=== PATIENT | female | born 1995 | race Caucasian/White ===

== ENCOUNTER 2017-01-28 15:19 | Inpatient (IN) | payer MEDICAID ==
[2017-01-28 15:53] LABS: APPEARANCE,URINE TURBID; BILIRUBIN,URINE NEGATIVE (NEGATIVE); GLUCOSE, URINE NEGATIVE (NEGATIVE); KETONES,URINE NEGATIVE (NEGATIVE); LEUKOCYTE ESTERASE,URINE MODERATE (NEGATIVE); NITRITE,URINE NEGATIVE (NEGATIVE); PROTEIN,URINE 100 mg/dL (NEGATIVE); URINE SPECIFIC GRAVITY 1.009; UROBILINOGEN,URINE NEGATIVE mg/dL (<2.0)
[2017-01-28 15:58] LABS: AMNISURE (ROM) POSITIVE (NEGATIVE)
[2017-01-28 16:14] LABS: URINE BARBITURATES SCREEN NEGATIVE; URINE METHADONE SCREEN NEGATIVE; URINE OPIATES LOW NEGATIVE; URINE PHENCYCLIDINE SCREEN NEGATIVE
[2017-01-28 17:08] LABS: ABSOLUTE EOSINOPHILS # (AUTO) 0.1 10^3/uL (0.0-0.6); ABSOLUTE LYMPHOCYTES (AUTO) 2.7 10^3/uL (0.5-4.7); ABSOLUTE MONOCYTES (AUTO) 0.9 10^3/uL (0.1-1.4); ABSOLUTE NEUT (AUTO) 8.7 10^3/uL (1.7-8.2); BASOPHILS % (AUTO) 0.2 % (0-2); EOSINOPHILS % (AUTO) 0.5 % (0-6); HEMATOCRIT 32.8 % (36.0-47.0); HEMOGLOBIN 11.2 g/dL (12.0-15.5); HGB HCT DIFFERENCE 0.8; MEAN CORPUSCULAR HGB CONC 34.1 g/dL (32.0-36.0); MEAN CORPUSCULAR VOLUME 91 fl (80-97); MONOCYTES % (AUTO) 7.2 % (3-13); RED BLOOD COUNT 3.61 10^6/uL (3.72-5.28); RED CELL DISTRIBUTION WIDTH 13.5 % (11.5-14.0); SEGMENTED NEUTROPHILS % (AUTO) 70.1 % (42-78); WHITE BLOOD COUNT 12.5 10^3/uL (4.0-10.5)
[2017-01-28] MEDS ORDERED: PROMETHAZINE HCL INJ 25 MG/1 ML VIAL ONE (17:37)
[2017-01-28] MEDS ORDERED: NALBUPHINE HCL INJ 10 MG/1 ML AMPULE ONE (17:37)
[2017-01-28] MEDS ORDERED: MISOPROSTOL 0.2 MG TABLET ONE (18:21)
[2017-01-28] MEDS ORDERED: EPHEDRINE SULFATE INJ 50 MG/1 ML AMPULE ONE (18:22)
[2017-01-28] MEDS ORDERED: FENTANYL CITRATE INJ/PF 100 MCG/2 ML AMPUL ONE (18:22)
[2017-01-28] MEDS ORDERED: PHENYLEPHRINE HCL INJ/PF 10 MG/1 ML SDV ONE (18:22)
[2017-01-28] MEDS ORDERED: OXYTOCIN/NORMAL SALINE 20 UNIT/1,000 ML RTUINJ ONE (18:23)
[2017-01-28] MEDS ORDERED: BUPIVACAINE HCL 0.25 % INJ/PF (2.5 MG/1 ML) 30 ML VIAL ONE (18:23)
[2017-01-28] MEDS ORDERED: FENTANYL/BUPIVACAINE/NS/PF 0 MCG/0 ML RTUINJ EPI ONE (18:23)
[2017-01-28] MEDS ORDERED: LIDOCAINE 1% INJ-PF (10 MG/ML) 30 ML SDV ONE (18:23)
[2017-01-28] MEDS ORDERED: DIBUCAINE 1% OINTMENT 28 GM TP PRN (18:49)
[2017-01-28] MEDS ORDERED: OXYTOCIN/NORMAL SALINE 1,000 ML IV PRN (18:49)
[2017-01-28] MEDS ORDERED: ZOLPIDEM TARTRATE 5 MG TABLET PO PRN (18:49)
[2017-01-28] MEDS ORDERED: BENZOCAINE/MENTHOL AEROSOL SPRAY 56 ML TOP PRN (18:49)
[2017-01-28] MEDS ORDERED: ACETAMINOPHEN WITH CODEINE #3 TABLET PO PRN ×2 (18:49)
[2017-01-28] MEDS ORDERED: MEASLES,MUMPS&RUBELLA VACC/PF 0.5 ML VIAL SUBCUT PRN (18:49)
[2017-01-28] MEDS ORDERED: DIPH/PERTUSS(ACELL)/TETANUS VAC/PF 0.5 ML SYR (>=10YO) IM PRN (18:49)
--- NOTE | 2017-01-28 19:35 | Delivery Summary ---
Del Sum A-C Datetime Report Generated by CPN: 01/28/2017 19:35 DELIVERY PERSONNEL DELIVERY PERSONNEL: [id number] Delivery Doctor:: Nicki Lorenzana MD Labor and Delivery Nurse:: ROMA Zapata Labor and Delivery Nurse:: Trudi Ziegler RN Nursery Nurse:: Noa Talley RN Form Stripper/SALESPERSON BURIAL PLOTS: Jose R Bonner, FOUNDRY TENDER MATERNAL INFORMATION Delivery Anesthesia: None Medications After Delivery: Pitocin Drip 20 Units/1000ml NSS Estimated Blood Loss (ml): 205 Maternal Complications: None Provider Comments: Precipitous labor and delivery. Pt and tolerated the procedure well. LABOR SUMMARY EDC: 02/09/2017 00:00 No. Babies in Womb: 1 Attempted: No Labor Anesthesia: IV Sedation LABOR INFORMATION Reason for Induction: Not Applicable (Annotations: Data stored by [facility] on behalf of user) Onset of Labor: 01/28/2017 16:00 Complete Dilatation: 01/28/2017 18:20 Oxytocin: N/A Group B Beta Strep: neg Antibiotics # of Doses: 0 Antibiotics Time of Last Dose: 0 Name of Antibiotic Given: 0 Steroids Given: None Reason Steroids Not Administered: Not Applicable MEMBRANES Membranes Rupture Method: Spontaneous Rupture of Membranes: 01/28/2017 14:00 Length of Rupture (hr): 4.47 Amniotic Fluid Color: Clear Amniotic Fluid Amount: Scant Amniotic Fluid Odor: None STAGES OF LABOR Stage 1 hr: 2 Stage 1 min: 20 Stage 2 hr: 0 Stage 2 min: 8 Stage 3 hr: 0 Stage 3 min: 3 Total Time in Labor hr: 2 Total Time in Labor min: 31 VAGINAL DELIVERY Episiotomy: None Laceration #1: Vaginal Laceration Extension #1: First Degree Laceration Repair: Yes Laceration Repair Note: Vaginal tissue was infiltrated with 1% lidocaine plain. Vircryl 3.0 was used to reapproximate the first degree midline vaginal laceration that was non-hemostatic. Sponge Count Correct: N/A Sharps Count Correct: Yes CSECTION DELIVERY Primary Indication: N/A CSection Incision: N/A BABY A INFORMATION Delivery Date/Time: 01/28/2017 18:28 Method of Delivery: Vaginal Born in Route : No : N/A Forceps: N/A Vacuum Extraction: N/A Shoulder Dystocia : No PRESENTATION/POSITION BABY A Presentation: Cephalic Cephalic Presentation: Vertex Vertex Position: Left Occipital Anterior Breech Presentation: N/A PLACENTA INFORMATION BABY A Placenta Delivery Time : 01/28/2017 18:31 Placenta Method of Delivery: Spontaneous Placenta Status: Delivered SCORES BABY A Heart Rate 1 min: >100 bpm Resp Effort 1 min: Good Cry Reflex Irritability 1 min: Cough or Sneeze or Pulls Away Muscle Tone 1 min: Active Motion Color 1 min: Body [place], Extremities Blue Resuscitation Effort 1 min: Tactile Stimulation SCORE 1 MIN: 9 Heart Rate 5 min: >100 bpm Resp Effort 5 min: Good Cry Reflex Irritability 5 min: Cough or Sneeze or Pulls Away Muscle Tone 5 min: Active Motion Color 5 min: Body [place], Extremities Blue Resuscitation Effort 5 min: Tactile Stimulation SCORE 5 MIN: 9 INFORMATION BABY A Gestational Age at Delivery: 38.2 Gestational Status: Early Term- 37- 38.6 Weeks Infant Outcome : Liveborn Condition : Stable Infant Sex: Male IDENTIFICATION BABY A Verification Date/Time: 01/28/2017 18:48 ID Band Number: [id number] Mother's Name Verified: Yes RN Verifying Infant: D Bellmarkynce RNC Additional Verifying Personnel: R JonoPlastio RN WEIGHT/LENGTH BABY A Birthweight (gm): 3030 Infant Weight (lb): 6 Weight (oz): 11 Infant Length (in): 19.50 Length (cm): 49.53 CORD INFORMATION BABY A No. Cord Vessels: 3 Nuchal Cord : N/A Cord Blood Taken: Yes-For Storage (Mom's Blood type +) Infant Suction: None ASSESSMENT BABY A Complications: None Physical Findings at Delivery: Within Normal Limits Infant Respirations: Appears Normal Skin to Skin: Yes Mobile Sales Consultant/ALS Called : No Care By: Munira Talley [facility] Transferred To: Remains with Mother SIGNATURES Signature: with User ID: [email or web address]
--- NOTE | 2017-01-28 21:37 | Admission Physical ---
Datetime Report Generated by CPN: 01/28/2017 21:37 CURRENT ADMISSION Hx Assessment: The History has been Reviewed and is Current Chief Complaint: Uterine Contractions; Suspected Ruptured Membranes; Other Chief Complaint Other: Leakage of fluid with positive amniosure Indication for Induction: Term, Intrauterine ; Ruptured Membranes Admit Impression- Other: Transitioning into active labor in regards to contractions and pain Admit Plan: Admit to Unit; Initiate Labor Protocol ALLERGIES Medication Allergies: Yes Medication Allergies: tamiflu- swelling and hives Latex: No Latex Allergies Food Allergies: no Environmental Allergies: no OBSTETRICAL HISTORY EDC: 02/09/2017 00:00 : 3 Para: 1 Term: 1 : 0 SAB: 1 IAB: 0 Ectopic: 0 Livin Cesareans: 0 VBACs: 0 Multiple Births: 0 Gestational Diabetes: No Rh Sensitization: No Incompetent Cervix: No NIA: No Infertility: No ART Treatment: No Uterine Anomaly: No IUGR: No Hx Previous C/S: No Macrosomia: No Hx Loss/Stillborn: No PIH: No Hx : No Placenta Previa/Abruption: No Depression/PP Depression: No PTL/PROM: No Post Hemorrhage: No Current Procedures: None; Ultrasound SEE RECORDS Alcohol: No Marijuana : No Cocaine: No Other Illicit Drugs: No Illicit Drug Comments: Patient denies but records indicate past hx of meth ahd herion use Cigarettes: Current Some Day Smoker. [id number] MEDICAL HISTORY Diabetes: No Blood Transfusion: No Pulmonary Disease (Asthma, TB): No Breast Disease: No Hypertension: No Bell Cleaner Surgery: No Heart Disease: No Hosp/Surgery: Yes Autoimmune Disorder: No Anesthetic Complications: No Kidney Disease: Yes Abnormal Pap Smear: Yes Neuro/Epilepsy: No Psychiatric Disorders: Yes Other Medical Diseases: No Hepatitis/Liver Disease: No Significant Family History: No Varicosities/Phlebitis: No Trauma/Violence : No Thyroid Dysfunction: No Medical History Comments: utis/bipolar meds in the past/tonsils//colposcopy done in /IV drug use in the past INFECTIOUS HISTORY Gonorrhea: No Genital Herpes: No Chlamydia: Yes Tuberculosis: No Syphilis: No Hepatitis: No HIV/AIDS Exposure: No Rash or Viral Illness: No HPV: No PHYSICAL EXAM General: Normal Neurologic: Normal Heart: Normal Lungs: Normal Abdomen: Normal Genitourinary Exam: Normal Extremities: Normal Pelvic Type: Adequate Physical Exam Comments: Gross leakage of clear fluid Abd: gravid and NT Vital Signs: Reviewed; Within Normal Limits VAGINAL EXAM Dilatation: 3 Effacement: 90 Station: -1 Contraction Comments: 1-3 MEMBRANES Membranes: Ruptured Amniotic Fluid Color: Clear FETUS A EGA: 38.2 Monitoring: External US FHR- Baseline: 120s Variability: Moderate 6-25bpm Accelerations: 15X15 Decelerations: None FHR Category: Category I FHR Comments: Reasurring status Estimated Weight (gm): 3200-3400g Presentation: Vertex Admit Comment: 21yo @ 38w2d by presents with complaints leakage of fluid since around 1400. Pt reports good fm, no vb and regular ctxs. Pt denies any problems with this . Pt transfered to [facility] approximately 1 month ago. 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 FOB is not involved at current. Pt can have epidural when she desires. PLANS FOR LABOR AND DELIVERY Labor and Delivery: None Pain Management: Epidural Feeding Preference: Breast Benefit of Breast Feed Discussed: Yes Circumcision: Yes INFORMED CONSENT Signature: with User ID: [email or web address]
[2017-01-28] MEDS: IBUPROFEN 800 MG TABLET PO SCH (22:28)
[2017-01-28] MEDS ORDERED: INFLUENZA ADLT QUAD (36MOS+) 2017-18 VAC 0.5 ML SYR IM PRN (22:56)
[2017-01-29] MEDS: IBUPROFEN 800 MG TABLET PO SCH ×3 (05:46→21:26)
[2017-01-29 07:09] LABS: HEMATOCRIT 29.8 % (36.0-47.0); HEMOGLOBIN 10.3 g/dL (12.0-15.5); HGB HCT DIFFERENCE 1.1; MEAN CORPUSCULAR HEMOGLOBIN 31.4 pg (27.0-33.4); MEAN CORPUSCULAR HGB CONC 34.4 g/dL (32.0-36.0); MEAN CORPUSCULAR VOLUME 91 fl (80-97); RED BLOOD COUNT 3.27 10^6/uL (3.72-5.28); RED CELL DISTRIBUTION WIDTH 13.8 % (11.5-14.0); WHITE BLOOD COUNT 15.4 10^3/uL (4.0-10.5)
[2017-01-29] MEDS: PRENATAL VITAMIN W-O CA NO5/FE FUMARATE/FA CAPSULE PO SCH (09:57)
[2017-01-29] MEDS: SENNOSIDES/DOCUSATE 8.6-50 MG 1 EACH TABLET PO SCH (09:57)
[2017-01-29] MEDS: DOCUSATE SODIUM 100 MG CAPSULE PO SCH ×2 (09:57→18:17)
[2017-01-29] MEDS: FERROUS SULFATE 325 MG TABLET PO SCH ×2 (09:58→18:17)
--- NOTE | 2017-01-29 10:24 | PDOC PROGRESS REPORT ---
Subjective-OB Subjective: Post Delivery Day: 21 year old. Denies any needs at this time. reports tolerating diet, voiding, and passing gas. states she is without difficulty. Physical Exam (OB) Vital Signs: Temp Pulse Resp BP Pulse Ox 97.9 F 82 16 120/59 L 99 01/28/17 20:59 01/28/17 20:59 01/28/17 20:59 01/28/17 20:59 01/28/17 20:59 Intake & Output 01/28/17 01/29/17 01/30/17 07:59 06:59 06:59 Weight - Abdomen Description: Tender, Soft Hernia Present: No Fundal Description: Firm, Midline Fundal Height: u/u - u/2 - Extremities Lower extremities: Crys's sign - neg Objective-Diagnostic Laboratory: 01/29/17 06:43 01/28/17 01/28/17 01/28/17 15:30 16:45 16:45 WBC 12.5 H RBC 3.61 L Hgb 11.2 L Hct 32.8 L MCV 91 MCH 31.0 MCHC 34.1 RDW 13.5 Plt Count 207 Seg Neutrophils % 70.1 Lymphocytes % 22.0 Monocytes % 7.2 Eosinophils % 0.5 Basophils % 0.2 Absolute Neutrophils 8.7 H Absolute Lymphocytes 2.7 Absolute Monocytes 0.9 Absolute Eosinophils 0.1 Absolute Basophils 0.0 Urine Color YELLOW Urine Appearance TURBID Urine pH 7.0 Ur Specific [place] 1.009 Urine Protein 100 H Urine Glucose (UA) NEGATIVE Urine Ketones NEGATIVE Urine Blood MODERATE H Urine Nitrite NEGATIVE Ur Leukocyte Esterase MODERATE H Blood Type A POSITIVE Antibody Screen NEGATIVE 01/29/17 06:43 WBC 15.4 H RBC 3.27 L Hgb 10.3 L Hct 29.8 L MCV 91 MCH 31.4 MCHC 34.4 RDW 13.8 Plt Count 184 Seg Neutrophils % Lymphocytes % Monocytes % Eosinophils % Basophils % Absolute Neutrophils Absolute Lymphocytes Absolute Monocytes Absolute Eosinophils Absolute Basophils Urine Color Urine Appearance Urine pH Ur Specific [place] Urine Protein Urine Glucose (UA) Urine Ketones Urine Blood Urine Nitrite Ur Leukocyte Esterase Blood Type Antibody Screen
[2017-01-30] MEDS: IBUPROFEN 800 MG TABLET PO SCH (05:52)
--- NOTE | 2017-01-30 08:50 | PDOC DISCHARGE SUMMARY ---
Final Diagnosis Discharge Date: 01/30/17 - Final Diagnosis (1) History of drug abuse in remission Is this a current diagnosis for this admission?: Yes (2) Normal vaginal delivery Is this a current diagnosis for this admission?: Yes Discharge Data - Discharge Medication Home Medications: Pnv No.95/Ferrous Fum/Folic AC [ Multivitamin Tablet] 1 each PO DAILY Docusate Sodium [Colace 100 mg Capsule] 100 mg PO BID #60 capsule 01/30/17 Ibuprofen [Motrin 800 mg Tablet] 800 mg PO Q8 #60 tablet 01/30/17 Gestational Age: 38.2 Reason(s) for Admission: Onset of Labor Procedures: NST Intrapartum Procedure(s): Spontaneous Vaginal Delivery Complication(s): Laceration-Perineal Laceration-Degree: 1st - [place] Data Baby 1 Male at 1 minute: 9 at 5 minutes: 9 Weight: 3030 kg Home with Mother: Yes Complications: No - Diagnosis Test Laboratory: Temp Pulse Resp BP Pulse Ox 97.6 F 71 16 100/43 L 98 01/30/17 08:33 01/30/17 08:33 01/30/17 08:33 01/30/17 08:12 01/30/17 08:33 01/28/17 01/28/17 01/29/17 15:30 16:45 06:43 RBC 3.61 L 3.27 L Hgb 11.2 L 10.3 L Hct 32.8 L 29.8 L Urine Opiates Screen NEGATIVE - Discharge information/Instructions Discharge Activity: Balance Activity w/Rest, Pelvic Rest Discharge Diet: Regular Disposition: HOME, SELF-CARE Follow up with: [facility] in: 4, Weeks
[2017-01-30] MEDS: DOCUSATE SODIUM 100 MG CAPSULE PO SCH (10:41)
[2017-01-30] MEDS: PRENATAL VITAMIN W-O CA NO5/FE FUMARATE/FA CAPSULE PO SCH (10:41)
[2017-01-30] MEDS: FERROUS SULFATE 325 MG TABLET PO SCH (10:41)
[2017-01-30] MEDS: SENNOSIDES/DOCUSATE 8.6-50 MG 1 EACH TABLET PO SCH (10:42)
[2017-01-30 13:12] VITALS: BP 108/61
== END 2017-01-30 13:49 | disposition home or self-care (01) | DRG 775 ==
LOC: LC 15:19 → LR 16:07 → 2S 20:50
PROVIDERS: ADMIT Obstetrics & Gynecology; ATTEND Obstetrics & Gynecology
PROC: 10E0XZZ Delivery of Products of Conception, External Approach (ICD-10-PCS; principal; 2017-01-28)
PROC: 0HQ9XZZ Repair Perineum Skin, External Approach (ICD-10-PCS; 2017-01-28)
PROC: 4A1HXCZ Monitoring of Products of Conception, Cardiac Rate, External Approach (ICD-10-PCS; 2017-01-28)
PROC: 3E0234Z Introduction of Serum, Toxoid and Vaccine into Muscle, Percutaneous Approach (ICD-10-PCS; 2017-01-30)
PROC: 3E0234Z Introduction of Serum, Toxoid and Vaccine into Muscle, Percutaneous Approach (ICD-10-PCS; 2017-01-30)
DX: O62.3 Precipitate labor (principal); O99.334 Smoking (tobacco) complicating childbirth; O70.0 First degree perineal laceration during delivery; F17.210 Nicotine dependence, cigarettes, uncomplicated; Z37.0 Single live birth; Z3A.38 38 weeks gestation of pregnancy; Z23 Encounter for immunization
CPT/HCPCS: 36415; 80307; 81005; 84112; 85025; 85027; 86592; 86850; 86900; 86901; 90686; 90715; J2300; J2370; J2550; J2590; J3010; J3490

== ENCOUNTER 2018-02-09 20:42 | Outpatient (CLI) | payer MEDICAID ==
[2018-02-09 21:06] LABS: AMORPHOUS SEDIMENT,URINE TRACE /HPF; APPEARANCE,URINE SLIGHTLY-CLOUDY; BILIRUBIN,URINE NEGATIVE (NEGATIVE); COLOR,URINE YELLOW; GLUCOSE, URINE NEGATIVE (NEGATIVE); KETONES,URINE NEGATIVE (NEGATIVE); LEUKOCYTE ESTERASE,URINE NEGATIVE (NEGATIVE); NITRITE,URINE NEGATIVE (NEGATIVE); PROTEIN,URINE NEGATIVE (NEGATIVE); URINE SPECIFIC GRAVITY 1.016; UROBILINOGEN,URINE NEGATIVE mg/dL (<2.0)
[2018-02-09 21:24] LABS: URINE AMPHETAMINES SCREEN NEGATIVE; URINE BARBITURATES SCREEN NEGATIVE; URINE BENZODIAZEPINES SCREEN NEGATIVE; URINE COCAINE SCREEN NEGATIVE; URINE MARIJUANA (THC) SCREEN NEGATIVE; URINE METHADONE SCREEN NEGATIVE; URINE PHENCYCLIDINE SCREEN NEGATIVE
== END 2018-02-09 21:56 | disposition home or self-care (01) ==
LOC: LC 20:42
PROVIDERS: ATTEND Obstetrics & Gynecology Gynecology
DX: O47.02 False labor before 37 completed weeks of gestation, second trimester (principal); Z3A.24 24 weeks gestation of pregnancy
CPT/HCPCS: 36415; 80307; 80361; 81001

== ENCOUNTER 2018-03-25 20:10 | Outpatient (CLI) | payer MEDICAID ==
[2018-03-25 20:47] LABS: APPEARANCE,URINE CLOUDY; BILIRUBIN,URINE NEGATIVE (NEGATIVE); GLUCOSE, URINE NEGATIVE (NEGATIVE); KETONES,URINE NEGATIVE (NEGATIVE); LEUKOCYTE ESTERASE,URINE NEGATIVE (NEGATIVE); NITRITE,URINE NEGATIVE (NEGATIVE); PROTEIN,URINE NEGATIVE (NEGATIVE); URINE SPECIFIC GRAVITY 1.012; UROBILINOGEN,URINE NEGATIVE mg/dL (<2.0)
[2018-03-25 20:48] LABS: COLOR,URINE DARK YELLOW
[2018-03-25 20:58] LABS: URINE AMPHETAMINES SCREEN NEGATIVE; URINE BARBITURATES SCREEN NEGATIVE; URINE BENZODIAZEPINES SCREEN NEGATIVE; URINE COCAINE SCREEN NEGATIVE; URINE MARIJUANA (THC) SCREEN NEGATIVE; URINE METHADONE SCREEN NEGATIVE; URINE PHENCYCLIDINE SCREEN NEGATIVE
--- NOTE | 2018-03-25 22:06 | RADIOLOGY REPORT (SQ) ---
EXAM DESCRIPTION: US LIMITED COMPLETED DATE/TME: 03/25/2018 00:00 CLINICAL HISTORY: 23 years, Female, cervical length COMPARISON: None. TECHNIQUE: Limited second/third trimester OB ultrasound LIMITATIONS: None. FINDINGS: Cervical length is 4.41 cm. Single, live intrauterine gestation in the vertex presentation. Detailed anatomic assessment was not performed. Detailed assessment of the placenta and amniotic fluid volume is not performed. Current gestational age is 30 weeks 5 days. IMPRESSION: Single, live intrauterine gestation in the vertex presentation. Cervical length is 4.41 cm. copyright 2010 [employer]- All Rights Reserved
== END 2018-03-25 22:25 | disposition home or self-care (01) ==
LOC: LC 20:10
PROVIDERS: ATTEND Obstetrics & Gynecology
PROC: 4A1HXCZ Monitoring of Products of Conception, Cardiac Rate, External Approach (ICD-10-PCS; principal; 2018-03-25)
DX: O26.893 Other specified pregnancy related conditions, third trimester (principal); R10.9 Unspecified abdominal pain; Z3A.30 30 weeks gestation of pregnancy
CPT/HCPCS: 76815; 80307; 81001

== ENCOUNTER 2018-05-23 11:13 | Inpatient (IN) | payer MEDICAID ==
[2018-05-23] MEDS ORDERED: LIDOCAINE 1% INJ-PF (10 MG/ML) 30 ML SDV ONE (11:39)
[2018-05-23] MEDS ORDERED: MISOPROSTOL 0.2 MG TABLET ONE (11:39)
[2018-05-23] MEDS ORDERED: OXYTOCIN/NORMAL SALINE 20 UNIT/1,000 ML RTUINJ ONE (11:39)
[2018-05-23] MEDS ORDERED: PENICILLIN G-K 5 MILLION UNIT VIAL ONE ×2 (11:39→14:56)
[2018-05-23] MEDS ORDERED: RINGERS SOLUTION,LACTATED 1,000 ML IV ONE (11:39)
[2018-05-23] MEDS ORDERED: PENICILLIN G POTASSIUM 5,000,000 UNIT in DEXTROSE 5%-WATER 100 ML IV ONE (11:39)
[2018-05-23 12:22] LABS: ABSOLUTE EOSINOPHILS # (AUTO) 0.1 10^3/uL (0.0-0.6); ABSOLUTE LYMPHOCYTES (AUTO) 2.9 10^3/uL (0.5-4.7); ABSOLUTE MONOCYTES (AUTO) 0.7 10^3/uL (0.1-1.4); ABSOLUTE NEUT (AUTO) 9.1 10^3/uL (1.7-8.2); BASOPHILS % (AUTO) 0.1 % (0-2); EOSINOPHILS % (AUTO) 0.6 % (0-6); HEMATOCRIT 30.6 % (36.0-47.0); HEMOGLOBIN 10.6 g/dL (12.0-15.5); LYMPHOCYTES % (AUTO) 22.8 % (13-45); MEAN CORPUSCULAR HEMOGLOBIN 31.6 pg (27.0-33.4); MEAN CORPUSCULAR HGB CONC 34.5 g/dL (32.0-36.0); MEAN CORPUSCULAR VOLUME 92 fl (80-97); MONOCYTES % (AUTO) 5.6 % (3-13); PLATELET COUNT 251 10^3/uL (150-450); RED BLOOD COUNT 3.34 10^6/uL (3.72-5.28); RED CELL DISTRIBUTION WIDTH 13.8 % (11.5-14.0); SEGMENTED NEUTROPHILS % (AUTO) 70.9 % (42-78); TOTAL CELLS COUNTED % (AUTO) 100 %; WHITE BLOOD COUNT 12.9 10^3/uL (4.0-10.5)
[2018-05-23] MEDS ORDERED: BUPIVACAINE HCL 0.25 % INJ/PF (2.5 MG/1 ML) 30 ML VIAL ONE (13:01)
[2018-05-23] MEDS ORDERED: EPHEDRINE SULFATE INJ 50 MG/1 ML AMPULE ONE (13:01)
[2018-05-23] MEDS ORDERED: FENTANYL/BUPIVACAINE/NS/PF 300 MCG/150 ML RTUINJ EPI ONE (13:01)
[2018-05-23] MEDS ORDERED: LIDOCAINE 1.5%/EPINEPHRINE INJ-PF 30 ML SDV ONE (13:01)
--- NOTE | 2018-05-23 13:28 | Admission Physical ---
Datetime Report Generated by CPN: 05/23/2018 13:28 CURRENT ADMISSION Hx Assessment: The History has been Reviewed and is Current Chief Complaint: Uterine Contractions Indication for Induction: Not Applicable Admit Impression : Term, Intrauterine Admit Plan: Admit to Unit; Initiate Labor Protocol ALLERGIES Medication Allergies: Yes Medication Allergies: oseltamivir/MO/Hives (03/25/2018) Latex: No Latex Allergies OBSTETRICAL HISTORY EDC: 05/29/2018 00:00 : 4 Para: 2 Term: 2 : 0 IAB: 1 Ectopic: 0 Livin Cesareans: 0 VBACs: 0 Multiple Births: 0 Gestational Diabetes: No Rh Sensitization: No Incompetent Cervix: No NIA: No Infertility: No ART Treatment: No Uterine Anomaly: No IUGR: No Hx Previous C/S: No Macrosomia: No Hx Loss/Stillborn: No PIH: No Hx : No Placenta Previa/Abruption: No Depression/PP Depression: No PTL/PROM: No Post Hemorrhage: No Current Procedures: Ultrasound Obstetrical History Comments: G1 2011 G2 SAB G3 2016 G4 curernt SEE RECORDS Alcohol: No Marijuana : No Cocaine: No Other Illicit Drugs: Yes Illicit Drug Comments: pt positive for opioids on UDS on 02/09/18 Cigarettes: Current Everyday Smoker. [id number] Cigarette Frequency: < 5 per day Advised to Stop: Yes MEDICAL HISTORY Diabetes: No Blood Transfusion: No Pulmonary Disease (Asthma, TB): No Breast Disease: No Hypertension: No Account Resolution Analyst Surgery: No Heart Disease: No Hosp/Surgery: No Autoimmune Disorder: No Anesthetic Complications: No Kidney Disease: Yes Abnormal Pap Smear: Yes Neuro/Epilepsy: No Psychiatric Disorders: No Other Medical Diseases: No Hepatitis/Liver Disease: No Significant Family History: No Varicosities/Phlebitis: No Trauma/Violence : No Thyroid Dysfunction: No Medical History Comments: abnormal pap smear during last , follow up was negative. INFECTIOUS HISTORY Gonorrhea: No Genital Herpes: No Chlamydia: Yes Tuberculosis: No Syphilis: No Hepatitis: No HIV/AIDS Exposure: No Rash or Viral Illness: No HPV: No Infectious History Comments: chlamydia 2012 MADHURI negative PHYSICAL EXAM General: Normal Neurologic: Normal Heart: Normal Lungs: Normal Breast: Normal Back: Normal Abdomen: Normal Genitourinary Exam: Normal Extremities: Normal Pelvic Type: Adequate Physical Exam Comments: pelvis proven to 7lbs 10oz Vital Signs: Reviewed; Within Normal Limits FETUS A EGA: 39.1 Monitoring: External US FHR- Baseline: 140 Variability: Moderate 6-25bpm Accelerations: 15X15 Decelerations: Variable Presentation: Vertex Admit Comment: 23yo @39w1d A positive, RI,GBS positive admitted into L_D with contractions and found to be 5cm dilated. Medical hx significant for borderline personality disorder,smoking and an elevated 1hr GTT this with normal 3hr. Reports positive movement today, no concerns. Will obtain epidural for pain control, anticipate delivery. PLANS FOR LABOR AND DELIVERY Pain Management: Epidural Feeding Preference: Breast Benefit of Breast Feed Discussed: Yes Circumcision: Yes INFORMED CONSENT Assignment: Kat White MD Signature: with User ID: [email or web address] : with User ID: [email or web address]
[2018-05-23 13:36] LABS: URINE AMPHETAMINES SCREEN NEGATIVE; URINE BARBITURATES SCREEN NEGATIVE; URINE BENZODIAZEPINES SCREEN NEGATIVE; URINE COCAINE SCREEN NEGATIVE; URINE MARIJUANA (THC) SCREEN NEGATIVE; URINE METHADONE SCREEN NEGATIVE; URINE PHENCYCLIDINE SCREEN NEGATIVE
[2018-05-23] MEDS ORDERED: DIPH/PERTUSS(ACELL)/TETANUS VAC/PF 0.5 ML SYR (>=10YO) IM PRN (15:40)
[2018-05-23] MEDS ORDERED: PROMETHAZINE HCL 25 MG SUPP.RECT PR PRN (15:40)
[2018-05-23] MEDS ORDERED: OXYTOCIN/NORMAL SALINE 20 UNIT/1,000 ML RTUINJ IV PRN (15:40)
[2018-05-23] MEDS ORDERED: PROMETHAZINE HCL 25 MG TABLET PO PRN (15:40)
[2018-05-23] MEDS ORDERED: PSEUDOEPHEDRINE HCL 30 MG TABLET PO PRN (15:40)
[2018-05-23] MEDS ORDERED: GLYCERIN/WITCH HAZEL LEAF 1 EACH MED..PAD TP PRN (15:40)
[2018-05-23] MEDS ORDERED: DIBUCAINE 1% OINTMENT 28 GM TP PRN (15:40)
[2018-05-23] MEDS ORDERED: MEASLES,MUMPS&RUBELLA VACC/PF 0.5 ML VIAL SUBCUT PRN (15:40)
[2018-05-23] MEDS ORDERED: MAGNESIUM HYDROXIDE SUSP 30 ML UDCUP PO PRN (15:40)
[2018-05-23] MEDS ORDERED: DIPHENHYDRAMINE HCL 25 MG CAPSULE PO PRN (15:40)
[2018-05-23] MEDS ORDERED: NA PHOS,M-B/NA PHOS,DI-BA (ADULT) 133 ML ENEMA PR PRN (15:40)
[2018-05-23] MEDS ORDERED: ACETAMINOPHEN 325 MG TABLET PO PRN (15:40)
[2018-05-23] MEDS ORDERED: BENZOCAINE/MENTHOL AEROSOL SPRAY 56 ML TOP PRN (15:40)
[2018-05-23] MEDS ORDERED: ACETAMINOPHEN WITH CODEINE #3 TABLET PO PRN (15:40)
[2018-05-23] MEDS ORDERED: PROMETHAZINE HCL INJ 25 MG/1 ML VIAL IV PRN (15:40)
--- NOTE | 2018-05-23 17:32 | Delivery Summary ---
Del Sum A-C Datetime Report Generated by CPN: 05/23/2018 17:32 DELIVERY PERSONNEL DELIVERY PERSONNEL: [id number] Delivery Doctor:: Kaitlin Heck CNM Labor and Delivery Nurse:: Jose De Jesus Stone RNtelephone assembler Nurse:: Connie Shoemaker RN Nursery Nurse:: Heather Becker RN Manager Warehouse/SKI TOP TRIMMER: [facility] [place] Manager Warehouse/SKI TOP TRIMMER: Jose R Bonner, SHIFT FOREMAN MATERNAL INFORMATION Delivery Anesthesia: Epidural Medications After Delivery: Pitocin Bolus-Please Comment; Pitocin Drip 20 Units/1000ml NSS Meds After Delivery Comment: Pitocin 20 units in 1 L NS bolusing per order Maternal Complications: None Provider Comments: Pt with increased pain with contractions and found to be c/c/0 with bbbw, pushed x1 and SROM with clear fluid. Pt. continued to push with next contraction and went on to deliver a viable baby boy in MELISSA presentation. Baby delivered through loose nuchal x1 and with vigorous respiratory effort and cry spontaneously at . Baby placed on maternal abdomen, cord allowed to stop pulsating then clamped x2 and cut by FOB (3vc noted, cord blood collected) placenta delivered spontaneously intact immediately following cord blood collection. Vaginal and perineal inspection revealed no lacerations, fundus firm @ u with minimal bleeding. Mother and baby remain skin to skin and bonding at this time. LABOR SUMMARY EDC: 05/29/2018 00:00 No. Babies in Womb: 1 Attempted: No Labor Anesthesia: Epidural LABOR INFORMATION Reason for Induction: Not Applicable Onset of Labor: 05/23/2018 09:00 Complete Dilatation: 05/23/2018 15:16 Oxytocin: N/A Group B Beta Strep: POSITIVE Antibiotics # of Doses: 2 Antibiotics Time of Last Dose: 1505 Name of Antibiotic Given: PCN Steroids Given: None Reason Steroids Not Administered: Not Applicable MEMBRANES Membranes Rupture Method: Spontaneous Rupture of Membranes: 05/23/2018 15:21 Length of Rupture (hr): 0.02 Amniotic Fluid Color: Clear Amniotic Fluid Amount: Small Amniotic Fluid Odor: Normal STAGES OF LABOR Stage 1 hr: 6 Stage 1 min: 16 Stage 2 hr: 0 Stage 2 min: 6 Stage 3 hr: 0 Stage 3 min: 5 Total Time in Labor hr: 6 Total Time in Labor min: 27 VAGINAL DELIVERY Episiotomy: None Laceration #1: None Laceration Extension #1: N/A Laceration Repair: Not Applicable Laceration Repair Note: N/A Sponge Count Correct: N/A Sharps Count Correct: N/A CSECTION DELIVERY Primary Indication: N/A Secondary Indication: N/A CSection Incidence: N/A Labor: N/A Elective: N/A CSection Incision: N/A BABY A INFORMATION Infant Delivery Date/Time: 05/23/2018 15:22 Method of Delivery: Vaginal Born in Route : No : N/A Forceps: N/A Vacuum Extraction: N/A Shoulder Dystocia : No PRESENTATION/POSITION BABY A Presentation: Cephalic Cephalic Presentation: Vertex Breech Presentation: N/A PLACENTA INFORMATION BABY A Placenta Delivery Time : 05/23/2018 15:27 Placenta Method of Delivery: Spontaneous Placenta Status: Delivered SCORES BABY A Heart Rate 1 min: >100 bpm Resp Effort 1 min: Good Cry Reflex Irritability 1 min: Cough or Sneeze or Pulls Away Muscle Tone 1 min: Some Flexion of Extremities Color 1 min: Body [place], Extremities Blue Resuscitation Effort 1 min: N/A SCORE 1 MIN: 8 Heart Rate 5 min: >100 bpm Resp Effort 5 min: Good Cry Reflex Irritability 5 min: Cough or Sneeze or Pulls Away Muscle Tone 5 min: Active Motion Color 5 min: Body [place], Extremities Blue Resuscitation Effort 5 min: N/A SCORE 5 MIN: 9 INFANT INFORMATION BABY A Gestational Age at Delivery: 39.1 Gestational Status: Full Term- 39- 40.6 Weeks Infant Outcome : Liveborn Infant Condition : Stable Sex: Male IDENTIFICATION BABY A Infant Verification Date/Time: 05/23/2018 15:36 ID Band Number: [id number] Mother's Name Verified: Yes Infant RN Verifying : M ABDOULAYE, RN/ BL ROULUND, RN WEIGHT/LENGTH BABY A Birthweight (gm): 2978 Infant Weight (lb): 6 Weight (oz): 9 Infant Length (in): 18.50 Length (cm): 46.99 CORD INFORMATION BABY A No. Cord Vessels: 3 Nuchal Cord : Around Neck x1, Loose Cord Blood Taken: Yes-For Storage (Mom's Blood type +) Infant Suction: None ASSESSMENT BABY A Complications: None Physical Findings at Delivery: Within Normal Limits Respirations: Appears Normal Skin to Skin: Yes Butting Saw Operator/ALS Called : No Infant Care By: Emery Becker RN Transferred To: Remains with Mother SIGNATURES Assignment: Kat White MD Signature: with User ID: Kelli : with User ID: [email or web address]
[2018-05-23] MEDS: DOCUSATE SODIUM 100 MG CAPSULE PO SCH ×2 (18:34→18:52)
[2018-05-23] MEDS: FERROUS SULFATE 325 MG TABLET PO SCH ×2 (18:34→18:52)
[2018-05-23] MEDS: IBUPROFEN 800 MG TABLET PO SCH ×2 (18:35→18:52)
[2018-05-23] MEDS: PENICILLIN G POTASSIUM 2,500,000 UNIT in DEXTROSE 5%-WATER 50 ML IV SCH (20:58)
[2018-05-23] MEDS: FAMOTIDINE 20 MG TABLET PO SCH (21:42)
[2018-05-24] MEDS: IBUPROFEN 800 MG TABLET PO SCH ×3 (02:47→17:47)
[2018-05-24 06:47] LABS: HEMATOCRIT 32.2 % (36.0-47.0); HEMOGLOBIN 10.8 g/dL (12.0-15.5); MEAN CORPUSCULAR HEMOGLOBIN 31.2 pg (27.0-33.4); MEAN CORPUSCULAR HGB CONC 33.6 g/dL (32.0-36.0); MEAN CORPUSCULAR VOLUME 93 fl (80-97); PLATELET COUNT 270 10^3/uL (150-450); RED BLOOD COUNT 3.46 10^6/uL (3.72-5.28); WHITE BLOOD COUNT 15.1 10^3/uL (4.0-10.5)
[2018-05-24] MEDS: FAMOTIDINE 20 MG TABLET PO SCH ×2 (10:27→21:45)
[2018-05-24] MEDS: PRENATAL VITAMIN W DHA CAPSULE PO SCH (10:27)
[2018-05-24] MEDS: DOCUSATE SODIUM 100 MG CAPSULE PO SCH ×2 (10:27→17:47)
[2018-05-24] MEDS: SENNOSIDES/DOCUSATE 8.6-50 MG 1 EACH TABLET PO SCH (10:27)
[2018-05-24] MEDS: FERROUS SULFATE 325 MG TABLET PO SCH ×2 (10:27→17:47)
--- NOTE | 2018-05-24 11:35 | PDOC PROGRESS REPORT ---
Subjective-OB Progress Note for:: 05/24/18 Physical Exam (OB) Vital Signs: Temp Pulse Resp BP Pulse Ox 97.7 F 74 17 120/50 L 99 05/24/18 07:34 05/24/18 07:34 05/24/18 07:34 05/24/18 07:34 05/24/18 07:34 Intake & Output 05/23/18 05/24/18 05/25/18 06:59 06:59 06:59 Weight 84.6 kg - Lochia Lochia Amount: Scant < 10 ml Lochia Color: Rubra/Red - Abdomen Description: Soft, Round Hernia Present: No Bowel Sounds: Normoactive Flatus Presence: Present Stool: No Fundal Description: Firm, Midline Fundal Height: u/u - u/2 Objective-Diagnostic Laboratory: 05/24/18 06:33 05/23/18 05/23/18 05/24/18 12:01 12:01 06:33 WBC 12.9 H 15.1 H RBC 3.34 L 3.46 L Hgb 10.6 L 10.8 L Hct 30.6 L 32.2 L MCV 92 93 MCH 31.6 31.2 MCHC 34.5 33.6 RDW 13.8 14.0 Plt Count 251 270 Seg Neutrophils % 70.9 Lymphocytes % 22.8 Monocytes % 5.6 Eosinophils % 0.6 Basophils % 0.1 Absolute Neutrophils 9.1 H Absolute Lymphocytes 2.9 Absolute Monocytes 0.7 Absolute Eosinophils 0.1 Absolute Basophils 0.0 Blood Type A POSITIVE Antibody Screen NEGATIVE
[2018-05-25] MEDS: IBUPROFEN 800 MG TABLET PO SCH ×2 (01:29→10:38)
[2018-05-25 07:49] VITALS: BP 120/62
--- NOTE | 2018-05-25 09:28 | PDOC DISCHARGE SUMMARY ---
Final Diagnosis Discharge Date: 05/25/18 - PP Day #2, doing well, no complaints, Breast and Bottlefeeding, A+, rubella Immune, +UDS for Opiod this admission - Final Diagnosis (1) Normal course Is this a current diagnosis for this admission?: Yes (2) Delivery normal Is this a current diagnosis for this admission?: Yes (3) Is this a current diagnosis for this admission?: Yes (4) History of drug abuse in remission Is this a current diagnosis for this admission?: Yes Discharge Data - Discharge Medication Prescriptions: Ibuprofen [Motrin 800 mg Tablet] 800 mg PO Q8A #60 tablet Home Medications: Pnv No.95/Ferrous Fum/Folic AC [ Multivitamin Tablet] 1 each PO DAILY 01/28/17 Ibuprofen [Motrin 800 mg Tablet] 800 mg PO Q8A #60 tablet 05/25/18 Reason(s) for Admission: Onset of Labor Procedures: Ultrasound Intrapartum Procedure(s): Spontaneous Vaginal Delivery - Diagnosis Test Laboratory: Temp Pulse Resp BP Pulse Ox 97.6 F 61 16 120/62 100 05/25/18 07:37 05/25/18 07:37 05/25/18 07:37 05/25/18 07:37 05/25/18 07:37 05/23/18 05/23/18 05/24/18 11:20 12:01 06:33 RBC 3.34 L 3.46 L Hgb 10.6 L 10.8 L Hct 30.6 L 32.2 L Urine Opiates Screen NEGATIVE - Discharge information/Instructions Discharge Activity: Activity As Tolerated, No Lifting Over 10 Pounds, Pelvic Rest Discharge Diet: As Tolerated, Regular Disposition: HOME, SELF-CARE Follow up with: [facility] in: 4, Weeks
[2018-05-25] MEDS: PRENATAL VITAMIN W DHA CAPSULE PO SCH (10:38)
[2018-05-25] MEDS: SENNOSIDES/DOCUSATE 8.6-50 MG 1 EACH TABLET PO SCH (10:38)
[2018-05-25] MEDS: DOCUSATE SODIUM 100 MG CAPSULE PO SCH (10:38)
[2018-05-25] MEDS: FAMOTIDINE 20 MG TABLET PO SCH (10:38)
[2018-05-25] MEDS: FERROUS SULFATE 325 MG TABLET PO SCH (10:38)
== END 2018-05-25 14:48 | disposition home or self-care (01) | DRG 807 ==
LOC: LC 11:13 → LR 11:46 → 2S 17:55
PROVIDERS: ADMIT Obstetrics & Gynecology; ATTEND Obstetrics & Gynecology
PROC: 10E0XZZ Delivery of Products of Conception, External Approach (ICD-10-PCS; principal; 2018-05-23)
PROC: 4A1HXCZ Monitoring of Products of Conception, Cardiac Rate, External Approach (ICD-10-PCS; 2018-05-23)
DX: O99.334 Smoking (tobacco) complicating childbirth (principal); Z37.0 Single live birth; F17.210 Nicotine dependence, cigarettes, uncomplicated; O69.81X0 Labor and delivery complicated by cord around neck, without compression, not applicable or unspecified; O99.324 Drug use complicating childbirth; F11.90 Opioid use, unspecified, uncomplicated; F60.3 Borderline personality disorder; O99.344 Other mental disorders complicating childbirth; O99.824 Streptococcus B carrier state complicating childbirth; Z3A.39 39 weeks gestation of pregnancy
CPT/HCPCS: 36415; 80307; 85025; 85027; 86592; 86850; 86900; 86901; J2540; J2590; J3010; J3490

== ENCOUNTER 2018-12-18 12:40 | Emergency (ER) | payer MEDICAID ==
--- NOTE | 2018-12-18 13:09 | ER Document Report ---
ED Medical Screen (RME) - General Chief Complaint: Toothache Stated Complaint: TOOTHACHE Time Seen by Provider: 12/18/18 13:07 Primary Care Provider: CASSY GARVIN MD [Primary Care Provider] - Follow up as needed Mode of Arrival: Ambulatory Information source: Patient Notes: 23-year-old female presents emergency department with complaints of dental pain for the past 3 days. Patient speaking in clear voice no trismus. Reports that she has not been able to get into see a dentist. No other complaints such as fever vomiting diarrhea. I have greeted and performed a rapid initial assessment of this patient. A comprehensive ED assessment and evaluation of the patient, analysis of test results and completion of the medical decision making process will be conducted by additional ED providers. Dictation of this chart was performed using voice recognition software; therefore, there may be some unintended grammatical errors. TRAVEL OUTSIDE OF THE [place] IN LAST 30 DAYS: No - Related Data Allergies/Adverse Reactions: oseltamivir [From Tamiflu] Allergy (Intermediate, Verified 12/18/18 13:04) Hives Past Medical History - Social History Chew tobacco use (# tins/day): No Frequency of alcohol use: None Drug Abuse: None - Immunizations History of Influenza Vaccine for 12/2016 - 05/2017 Season: Yes Physical Exam - Vital signs Vitals: Temp Pulse Resp BP Pulse Ox 98.1 F 89 16 105/65 97 12/18/18 12:55 12/18/18 12:55 12/18/18 12:55 12/18/18 12:55 12/18/18 12:55 Course - Vital Signs Vital signs: Temp Pulse Resp BP Pulse Ox 98.1 F 89 16 105/65 97 12/18/18 12:55 12/18/18 12:55 12/18/18 12:55 12/18/18 12:55 12/18/18 12:55 Doctor's Discharge - Discharge Referrals: CASSY GARVIN MD [Primary Care Provider] - Follow up as needed
[2018-12-18] MEDS ORDERED: LIDOCAINE 2% VISCOUS SOLN 20 ML UDCUP PO ONE (14:40)
[2018-12-18] MEDS ORDERED: IBUPROFEN 600 MG TABLET PO ONE (14:41)
[2018-12-18] MEDS ORDERED: ACETAMINOPHEN 325 MG TABLET PO ONE (14:41)
[2018-12-18] MEDS ORDERED: PENICILLIN V POTASSIUM 500 MG TABLET PO ONE (14:41)
[2018-12-18] MEDS ORDERED: HYDROCODONE/ACETAMINOPHEN 5-325 MG (6 TAB/ER DISP) PO PRN (14:42)
--- NOTE | 2018-12-18 14:48 | ER Document Report ---
HPI - HPI Patient complains to provider of: dental pain Time Seen by Provider: 12/18/18 13:07 Pain Level: 3 Context: Pleasant 23-year-old female presents the emergency department with chief complaint of an infected #11 tooth at the base where it meets the gingiva. States the symptoms started 3 days ago and she believes that she cracked her tooth. Said the pain has been constant and is throbbing. Patient denies any trismus, denies fevers or chills, denies airway obstruction or respiratory distress, patient does have a dental appointment in 1 week but was seeking symptom relief prior to. - REPRODUCTIVE Reproductive: DENIES: : Past Medical History - General Information source: Patient - Social History Smoking Status: Current Every Day Smoker Chew tobacco use (# tins/day): No Frequency of alcohol use: None Drug Abuse: None Family History: None Patient has suicidal ideation: No Patient has homicidal ideation: No Vertical Provider Document - CONSTITUTIONAL Notes: PHYSICAL EXAMINATION: Reviewed vital signs and charting by RN GENERAL: Alert, interacts well. No acute distress. HEAD: Normocephalic, atraumatic. EYES: Pupils equal and round. Extraocular movements intact. ENT: Oral mucosa moist, tongue midline. Decay at the base of the #11 tooth with some mild gingival inflammation, pain with percussion of the tooth NECK: Full range of motion. Trachea midline. EXTREMITIES: Moves all 4 extremities spontaneously. No edema, No cyanosis. PSYCH: Normal affect, normal mood. SKIN: Warm, dry, normal turgor. No rashes or lesions noted. - INFECTION CONTROL TRAVEL OUTSIDE OF THE [place] IN LAST 30 DAYS: No Course - Re-evaluation Re-evalutation: 12/18/18 14:49 Presentation is most consistent with likely an infected tooth. Airway is patent. Vitals within normal limits. Patient is able swallow without any difficulty. There is no significant facial swelling. No evidence of Leandro angina, apical abscess, or airway obstruction. Patient will be started on antibiotics. I've instructed to follow-up with dentistry as earliest ability for definitive management. At this time will discharge with return precautions and follow-up recommendations. Verbal discharge instructions given a the bedside and opportunity for questions given. Medication warnings reviewed. Patient is in agreement with this plan and has verbalized understanding of return precautions and the need for primary care follow-up in the next 24-72 hours. - Vital Signs Vital signs: Temp Pulse Resp BP Pulse Ox 98.1 F 89 16 105/65 97 12/18/18 12:55 12/18/18 12:55 12/18/18 12:55 12/18/18 12:55 12/18/18 12:55 Discharge - Discharge Clinical Impression: Pain, dental, Dental infection Condition: Good Disposition: HOME, SELF-CARE Instructions: Oral Narcotic Medication ([facility]), Penicillin V K ([facility]), Toothache ([facility]) Additional Instructions: You have been seen for dental pain. It is very important that you follow-up with a dentist for definitive care. You have been prescribed penicillin VK so please take 1 tablet every 12 hours for 7 days. Also, I have given you a short course of pain medication that you can take for breakthrough pain before bedtime or when you are not doing anything as it does cause drowsiness. Also I have given you some Tessalon Perles and you can appears 1 of those and rub it over the area no more frequent than every 8 hours. For the lidocaine. Please do not use it any more than every 2-3 hours as it can cause toxicity. Please return if you develop fever greater than 101, swelling in your face, vomiting, difficulty breathing or swallowing, or any other symptoms that are concerning to you. For pain you should take ibuprofen 600 mg every 6 hours as needed. Prescriptions: Benzonatate [Tessalon Perles 100 mg Capsule] 100 mg PO Q8HP PRN #40 capsule PRN Reason: Penicillin V Potassium [Penicillin Vk 500 mg Tablet] 500 mg PO BID #14 tablet Referrals: CASSY GARVIN MD [Primary Care Provider] - Follow up as needed
[2018-12-18 15:03] VITALS: BP 100/62
== END 2018-12-18 15:05 | disposition home or self-care (01) ==
LOC: ER 12:40
DX: K04.7 Periapical abscess without sinus (principal); K02.9 Dental caries, unspecified; K05.10 Chronic gingivitis, plaque induced; K08.89 Other specified disorders of teeth and supporting structures; F17.200 Nicotine dependence, unspecified, uncomplicated
CPT/HCPCS: 99282; J3490 ×4